=== PATIENT | female | born 1955 | race Caucasian/White ===

== ENCOUNTER 2018-01-05 19:02 | Emergency (ER) | payer SELFPAY, OTHER | END 2018-01-05 20:20 | disposition left against medical advice (07) | LOC: E/R 19:02 | DX: Z53.21 Procedure and treatment not carried out due to patient leaving prior to being seen by health care provider (principal) ==

== ENCOUNTER 2018-06-06 22:23 | Emergency (ER) | payer OTHER ==
[2018-06-07] MEDS: ONDANSETRON 4 MG INJ IV (01:34)
[2018-06-07] MEDS: LIDOCAINE/MYLANTA 40 ML BTL PO (01:34)
[2018-06-07] MEDS: BELLADONNA/PHENOBARBITAL TAB PO (01:34)
[2018-06-07] MEDS: HYDROmorphONE 1 MG/ML SYG IV (01:35)
== END 2018-06-07 02:15 | disposition home or self-care (01) ==
LOC: FTE 22:23
DX: G50.0 Trigeminal neuralgia (principal); G89.29 Other chronic pain; Z87.891 Personal history of nicotine dependence
CPT/HCPCS: 93005; 96374; 96375; 99284-25

== ENCOUNTER 2018-09-29 20:04 | Emergency (ER) | payer OTHER ==
[2018-09-29] MEDS: LIDOCAINE/MYLANTA 40 ML BTL PO (20:57)
[2018-09-29] MEDS: ONDANSETRON (ODT) 4 MG TAB ODT (20:59)
[2018-09-29] MEDS: morphine 4 MG/ML VIAL IM (21:05)
== END 2018-09-29 21:43 | disposition home or self-care (01) ==
LOC: FTE 20:04
DX: R51 Headache (principal); F17.210 Nicotine dependence, cigarettes, uncomplicated; R11.10 Vomiting, unspecified
CPT/HCPCS: 96372; 99284-25

== ENCOUNTER 2018-10-16 18:48 | Inpatient (IN) | payer OTHER ==
[2018-10-16] MEDS ORDERED: DEXTROSE 5%-0.45% NACL 1,000 ML IV (21:42)
[2018-10-16] MEDS ORDERED: morphine 2 MG INJ IV (22:00)
[2018-10-16] MEDS ORDERED: NACL 0.9% 3 ML SYG IV (22:00)
[2018-10-16] MEDS ORDERED: ONDANSETRON 4 MG INJ IV (22:00)
[2018-10-16] MEDS ORDERED: ALBUTEROL/IPRATROPIUM (NEB) 3 ML AMP HHN (22:00)
[2018-10-16] MEDS ORDERED: ACETAMINOPHEN 325 MG TAB PO (22:00)
== END 2018-10-16 21:55 | disposition left against medical advice (07) | DRG 440 ==
LOC: PP2 18:48
DX: K85.90 Acute pancreatitis without necrosis or infection, unspecified (principal)